=== PATIENT | male | born 1965 | race Caucasian/White ===

== ENCOUNTER 2019-01-09 12:12 | Emergency (ER) | payer BC ==
[2019-01-09] MEDS ORDERED: Nitroglycerin 0.4 MG Tab.SL SL ONE (12:22)
--- NOTE | 2019-01-09 12:29 | EDM.PDOC ---
ED HPI GENERAL MEDICAL PROBLEM - General Chief Complaint: Chest Pain Stated Complaint: chest pain Time Seen by Provider: 01/09/19 12:15 Source of Information: Reports: Patient, Family History Limitations: Reports: No Limitations - History of Present Illness INITIAL COMMENTS - FREE TEXT/NARRATIVE: Patient presents to ER with a 45 minute history of intermittent chest and back pain. States was out working in his [employer] shop when noted increased pain in his back up to his neck. He relates he felt a fullness then between his back and his chest. Did rate his pain at a 7 at that time. Roscoe short of breath and got sweaty. Roscoe lightheaded. relates "it was like he suddenly got very weak". Patient states thought was going to faint. The pain then did ease enroute to our facility but waxed and waned thereafter. Now has very minimal pain, rates at a 1. He denies any cardiac history. No trauma. Had a follow up visit 2 weeks ago for his knee, blood pressure was good at that time. No history of known hypertension, hyperlipidemia or cardiac arrhythmias. Family history consists of a grandfather who of a "heart attack in his 70s" Onset: Today, Sudden Duration: Minutes: Location: Reports: Chest, Back Quality: Reports: Pressure Severity: Moderate Improves with: Reports: Rest Associated Symptoms: Reports: Chest Pain, Diaphoresis, Shortness of Breath. Denies: Confusion, Cough, Fever/Chills, Loss of Appetite, Nausea/Vomiting Chest Pain Score (Numeric/FACES): 0 - Related Data Allergies Allergy/AdvReac Type Severity Reaction Status Date / Time No Known Allergies Allergy Verified 01/09/19 12:31 Home Meds: Home Meds . [No Known Home Meds] 01/09/19 [History] Past Medical History Musculoskeletal History: Reports: Arthritis - Past Surgical History Musculoskeletal Surgical History: Reports: Joint Replacement Social & Family History - Tobacco Use Smoking Status *Q: Never Smoker ED ROS GENERAL - Review of Systems Review Of Systems: See Below Constitutional: Reports: Malaise, Weakness. Denies: Fever, Chills, Decreased Appetite HEENT: Reports: No Symptoms Respiratory: Reports: Shortness of Breath. Denies: Wheezing, Cough Cardiovascular: Reports: Chest Pain, Lightheadedness. Denies: Edema Endocrine: Reports: Fatigue GI/Abdominal: Reports: Nausea. Denies: Abdominal Pain, Constipation, Diarrhea, Vomiting : Reports: No Symptoms Musculoskeletal: Reports: Back Pain Skin: Reports: Diaphoresis Neurological: Reports: Weakness Psychiatric: Reports: No Symptoms ED EXAM, GENERAL - Physical Exam Exam: See Below Exam Limited By: No Limitations General Appearance: Alert, WD/WN, Mild Distress Ears: Normal External Exam, Normal TMs Nose: Normal Inspection, Normal Mucosa, No Blood Throat/Mouth: Normal Inspection, Normal Oropharynx Head: Normocephalic Neck: Normal Inspection, Supple, Non-Tender Respiratory/Chest: No Respiratory Distress, Lungs Clear, Normal Breath Sounds Cardiovascular: Regular Rate, Rhythm, No Edema GI/Abdominal: Normal Bowel Sounds, Soft, Non-Tender Extremities: Normal Inspection, No Pedal Edema Neurological: Alert, Oriented Skin Exam: Warm, Dry EKG INTERPRETATION EKG Date: 01/09/19 Rhythm: NSR Course - Vital Signs Last Recorded V/S: Last Vital Signs Temp 97 F 01/09/19 15:12 Pulse 77 01/09/19 15:12 Resp 18 01/09/19 15:12 BP 116/68 01/09/19 15:12 Pulse Ox 97 01/09/19 15:12 - Orders/Labs/Meds Orders: Active Orders 24 hr Category Date Time Status Ang Chest [CT] Stat Exams 01/09/19 12:47 Taken Chest 2V [CR] Stat Exams 01/09/19 12:14 Taken Labs: Laboratory Tests 01/09/19 01/09/19 01/09/19 Range/Units 12:14 12:14 12:14 WBC 6.5 (5.0-10.0) 10^3/uL RBC 5.34 (4.50-6.00) 10^6/uL Hgb 16.9 (14.0-18.0) g/dL Hct 49.1 (40.0-54.0) % MCV 91.9 (82.0-94.0) fL MCH 31.6 (27.0-32.0) pg MCHC 34.4 (33.0-38.0) g/dL RDW Coeff of Efra 12.9 (11.0-15.0) % Plt Count 198 (150-400) 10^3/uL Neut % (Auto) 46.5 (35-85) % Lymph % (Auto) 36.1 (10-55) % [place] % (Auto) 13.1 (0-16) % Eos % (Auto) 4.0 (0-5) % Baso % (Auto) 0.3 (0-3) % Neut # (Auto) 3.02 (1.80-7.00) 10^3/uL Lymph # (Auto) 2.34 (1.00-4.80) 10^3/uL [place] # (Auto) 0.85 H (0.00-0.80) 10^3/uL Eos # (Auto) 0.26 (0.00-0.45) 10^3/uL Baso # (Auto) 0.02 10^3/uL D-Dimer, Quantitative 0.51 H (0.00-0.50) Sodium 137 (136-145) mEq/L Potassium 3.9 (3.5-5.0) mEq/L Chloride 102 (98-106) mEq/L Carbon Dioxide 26 (21-32) mmol/L BUN 21 H (7-18) mg/dL Creatinine 1.0 (0.7-1.3) mg/dL Est Cr Clr Drug Dosing 94.84 mL/min Estimated GFR (MDRD) > 60 (>=60) mL/min Glucose 106 H D (75-99) mg/dL Calcium 8.9 (8.4-10.1) mg/dL Total Bilirubin 0.6 (0.0-1.0) mg/dL AST 25 (15-37) U/L ALT 37 (12-78) U/L Alkaline Phosphatase 73 (46-116) U/L Lactate Dehydrogenase 186 (100-190) U/L Creatine Kinase 232 (35-232) U/L Troponin I < 0.017 (0.00-0.06) ng/mL Total Protein 6.9 (6.4-8.2) g/dL Albumin 3.7 (3.4-5.0) g/dL Amylase 45 (25-115) U/L Lipase 115 (73-393) U/L 01/09/19 Range/Units 16:10 WBC (5.0-10.0) 10^3/uL RBC (4.50-6.00) 10^6/uL Hgb (14.0-18.0) g/dL Hct (40.0-54.0) % MCV (82.0-94.0) fL MCH (27.0-32.0) pg MCHC (33.0-38.0) g/dL RDW Coeff of Efra (11.0-15.0) % Plt Count (150-400) 10^3/uL Neut % (Auto) (35-85) % Lymph % (Auto) (10-55) % [place] % (Auto) (0-16) % Eos % (Auto) (0-5) % Baso % (Auto) (0-3) % Neut # (Auto) (1.80-7.00) 10^3/uL Lymph # (Auto) (1.00-4.80) 10^3/uL [place] # (Auto) (0.00-0.80) 10^3/uL Eos # (Auto) (0.00-0.45) 10^3/uL Baso # (Auto) 10^3/uL D-Dimer, Quantitative (0.00-0.50) Sodium (136-145) mEq/L Potassium (3.5-5.0) mEq/L Chloride (98-106) mEq/L Carbon Dioxide (21-32) mmol/L BUN (7-18) mg/dL Creatinine (0.7-1.3) mg/dL Est Cr Clr Drug Dosing mL/min Estimated GFR (MDRD) (>=60) mL/min Glucose (75-99) mg/dL Calcium (8.4-10.1) mg/dL Total Bilirubin (0.0-1.0) mg/dL AST (15-37) U/L ALT (12-78) U/L Alkaline Phosphatase (46-116) U/L Lactate Dehydrogenase (100-190) U/L Creatine Kinase (35-232) U/L Troponin I < 0.017 (0.00-0.06) ng/mL Total Protein (6.4-8.2) g/dL Albumin (3.4-5.0) g/dL Amylase (25-115) U/L Lipase (73-393) U/L Meds: Medications Discontinued Medications Generic Name Dose Route Start Last Admin Trade Name Freq PRN Reason Stop Dose Admin Iopamidol 100 ml 01/09/19 12:56 06/12/19 13:06 Isovue-370 (76%) IVPUSH 01/09/19 12:57 100 ml ONETIME ONE Administration Nitroglycerin 0.4 mg 01/09/19 12:22 01/09/19 12:25 Nitrostat SL 01/09/19 12:23 0.4 mg ONETIME ONE Administration - Re-Assessments/Exams Free Text/Narrative Re-Assessment/Exam: 01/09/19 D-Dimer mildly elevated. Cardiac enzymes normal. Will proceed with CTA of chest. Blood pressure improved after nitro. 1700- Repeat cardiac enzymes normal. CTA negative. Will discharge home. Arrange tomorrow for cardiolyte, possibly carotid ultrasound. Discuss with Dr. West. Rest. Push fluids. Departure - Departure Time of Disposition: 17:04 Disposition: Home, Self-Care 01 Condition: Good Clinical Impression: Atypical chest pain Referrals: PCP,None [Primary Care Provider] - Forms: ED Department Discharge Additional Instructions: 1. Rest 2. Push fluids 3. Small frequent meals 4. Will contact you and proceed with stress test, possible further labs. 5. Follow up or return if recurring symptoms. - My Orders Last 24 Hours: My Active Orders 01/09/19 12:14 Chest 2V [CR] Stat 01/09/19 12:47 Ang Chest [CT] Stat - Assessment/Plan Last 24 Hours: My Active Orders 01/09/19 12:14 Chest 2V [CR] Stat 01/09/19 12:47 Ang Chest [CT] Stat
[2019-01-09 12:41] LABS: CHLORIDE,CL 102 mEq/L (98-106); SODIUM,NA 137 mEq/L (136-145)
[2019-01-09] MEDS ORDERED: Iopamidol 755 Mg/ML 100 ML Bottle IVPUSH ONE (12:56)
== END 2019-01-09 17:11 | disposition home or self-care (01) ==
LOC: CC.ED 12:12
DX: R07.89 Other chest pain (principal); R79.1 Abnormal coagulation profile
CPT/HCPCS: 36415; 71046; 71275; 80053; 82150; 82550; 83615; 83690; 84484; 85025; 85379; 93005; 99285-25; A9270-GY; Q9967

== ENCOUNTER 2019-01-13 13:26 | Emergency (ER) | payer BC ==
[~2019-01-13 13:26] MED LIST: Nitroglycerin 0.4 MG Tab.SL SL PRN
--- NOTE | 2019-01-13 13:36 | EDM.PDOC ---
ED HPI GENERAL MEDICAL PROBLEM - General Chief Complaint: General Stated Complaint: weakness, dizziness Time Seen by Provider: 01/13/19 13:26 - History of Present Illness INITIAL COMMENTS - FREE TEXT/NARRATIVE: in with c/o developed cp and sob x 1 hour ago, was seen in the ED earlier this week with similar sx and was dc home, is set up for a Echocardiogram, carotid US and a stress test for this coming week. was also started on metoprolol. pt has already taken asa just prior to coming to the ED. nausea, no vomiting, no abd pain, no fever or chills, no palpitations or irregular heart beat, no calf pain, redness or swelling. Onset: Today, Sudden Duration: Hour(s): Location: Reports: Chest Quality: Reports: Same as Previous Episode Severity: Moderate Improves with: Reports: None Worsens with: Reports: None Associated Symptoms: Reports: Chest Pain, Nausea/Vomiting, Shortness of Breath. Denies: Confusion, Cough, cough w sputum, Fever/Chills, Headaches, Loss of Appetite, Malaise, Syncope, Weakness Treatments [employer]: Reports: Aspirin Chest Pain Score (Numeric/FACES): 1 - Related Data Allergies Allergy/AdvReac Type Severity Reaction Status Date / Time No Known Allergies Allergy Verified 01/13/19 13:28 Home Meds: Home Meds Metoprolol Tartrate 25 mg PO BID 01/13/19 [History] Past Medical History Cardiovascular History: Reports: Hypertension Musculoskeletal History: Reports: Arthritis - Past Surgical History Musculoskeletal Surgical History: Reports: Joint Replacement Social & Family History - Family History Family Medical History: Noncontributory Cardiac: Reports: CAD, Other (See Below) Other Cardiac Family History: maternal grandfather of [place] - Tobacco Use Smoking Status *Q: Never Smoker - Alcohol Use Alcohol Use History: No ED ROS GENERAL - Review of Systems Review Of Systems: See Below Constitutional: Denies: Fever, Chills, Weakness HEENT: Reports: No Symptoms Respiratory: Reports: Shortness of Breath Cardiovascular: Reports: Chest Pain Endocrine: Reports: No Symptoms GI/Abdominal: Reports: Nausea. Denies: Abdominal Pain, Vomiting Musculoskeletal: Reports: No Symptoms Skin: Reports: No Symptoms Neurological: Reports: No Symptoms Psychiatric: Reports: Anxiety Hematologic/Lymphatic: Reports: No Symptoms ED EXAM, GENERAL - Physical Exam Exam: See Below Exam Limited By: No Limitations General Appearance: Alert, WD/WN, Anxious Ears: Normal External Exam Nose: Normal Inspection Throat/Mouth: Normal Voice, No Airway Compromise Head: Atraumatic, Normocephalic Neck: Normal Inspection, Supple, Non-Tender, Full Range of Motion Respiratory/Chest: No Respiratory Distress, Lungs Clear, Normal Breath Sounds, No Accessory Muscle Use, Chest Non-Tender Cardiovascular: Normal Peripheral Pulses, Regular Rate, Rhythm, No Edema, No Murmur Peripheral Pulses: 2+: Radial (L), Radial (R), Dorsalis Pedis (L), Dorsalis Pedis (R) GI/Abdominal: Normal Bowel Sounds, Soft, Non-Tender Back Exam: Normal Inspection, Full Range of Motion Extremities: Normal Inspection, Normal Range of Motion, Non-Tender, No Pedal Edema, Normal Capillary Refill. No: Jenifer's Sign Neurological: Alert, Oriented, Normal Cognition, Normal Gait, No Motor/Sensory Deficits Psychiatric: Normal Affect, Anxious Skin Exam: Warm, Dry, Intact, Normal Color EKG INTERPRETATION EKG Date: 01/13/19 Time: 13:33 Rhythm: NSR Lyons: Normal P-Wave: Present QRS: Normal ST-T: Normal EKG Interpretation Comments: NSR, RSR in the right limb leads Course - Vital Signs Last Recorded V/S: Last Vital Signs Temp 35.8 C 01/13/19 13:26 Pulse 72 01/13/19 13:49 Resp 20 01/13/19 13:49 BP 122/72 01/13/19 13:49 Pulse Ox 95 01/13/19 13:49 - Orders/Labs/Meds Orders: Active Orders 24 hr Category Date Time Status Chest 2V [CR] Stat Exams 01/13/19 13:08 Taken Nitroglycerin [Nitrostat] Med 01/13/19 13:10 Active 0.4 mg SL Q5M PRN Medication Orders Nitroglycerin (Nitrostat) 0.4 mg SL Q5M PRN PRN Reason: Chest Pain Last Admin: 01/13/19 13:34 Dose: 0.4 mg Labs: Laboratory Tests 01/13/19 01/13/19 01/13/19 Range/Units 13:30 13:30 13:30 WBC 6.1 (5.0-10.0) 10^3/uL RBC 5.76 (4.50-6.00) 10^6/uL Hgb 18.3 H* (14.0-18.0) g/dL Hct 53.0 (40.0-54.0) % MCV 92.0 (82.0-94.0) fL MCH 31.8 (27.0-32.0) pg MCHC 34.5 (33.0-38.0) g/dL RDW Coeff of Efra 13.1 (11.0-15.0) % Plt Count 209 (150-400) 10^3/uL Neut % (Auto) 51.9 (35-85) % Lymph % (Auto) 32.7 (10-55) % [place] % (Auto) 10.4 (0-16) % Eos % (Auto) 4.8 (0-5) % Baso % (Auto) 0.2 (0-3) % Neut # (Auto) 3.14 (1.80-7.00) 10^3/uL Lymph # (Auto) 1.98 (1.00-4.80) 10^3/uL [place] # (Auto) 0.63 (0.00-0.80) 10^3/uL Eos # (Auto) 0.29 (0.00-0.45) 10^3/uL Baso # (Auto) 0.01 10^3/uL PT 10.0 (9.7-12.3) SEC INR 0.97 (0.92-1.18) APTT 30.2 (23.2-32.3) SEC Sodium 140 (136-145) mEq/L Potassium 3.9 (3.5-5.0) mEq/L Chloride 102 (98-106) mEq/L Carbon Dioxide 31 (21-32) mmol/L BUN 23 H (7-18) mg/dL Creatinine 1.2 (0.7-1.3) mg/dL Est Cr Clr Drug Dosing 79.04 mL/min Estimated GFR (MDRD) > 60 (>=60) mL/min Glucose 132 H (75-99) mg/dL Calcium 9.3 (8.4-10.1) mg/dL Total Bilirubin 0.4 (0.0-1.0) mg/dL AST 21 (15-37) U/L ALT 32 (12-78) U/L Alkaline Phosphatase 80 (46-116) U/L Lactate Dehydrogenase 181 (100-190) U/L Creatine Kinase 86 (35-232) U/L Troponin I < 0.017 (0.00-0.06) ng/mL Total Protein 7.3 (6.4-8.2) g/dL Albumin 3.8 (3.4-5.0) g/dL Lipase (73-393) U/L 01/13/19 Range/Units 13:30 WBC (5.0-10.0) 10^3/uL RBC (4.50-6.00) 10^6/uL Hgb (14.0-18.0) g/dL Hct (40.0-54.0) % MCV (82.0-94.0) fL MCH (27.0-32.0) pg MCHC (33.0-38.0) g/dL RDW Coeff of Efra (11.0-15.0) % Plt Count (150-400) 10^3/uL Neut % (Auto) (35-85) % Lymph % (Auto) (10-55) % [place] % (Auto) (0-16) % Eos % (Auto) (0-5) % Baso % (Auto) (0-3) % Neut # (Auto) (1.80-7.00) 10^3/uL Lymph # (Auto) (1.00-4.80) 10^3/uL [place] # (Auto) (0.00-0.80) 10^3/uL Eos # (Auto) (0.00-0.45) 10^3/uL Baso # (Auto) 10^3/uL PT (9.7-12.3) SEC INR (0.92-1.18) APTT (23.2-32.3) SEC Sodium (136-145) mEq/L Potassium (3.5-5.0) mEq/L Chloride (98-106) mEq/L Carbon Dioxide (21-32) mmol/L BUN (7-18) mg/dL Creatinine (0.7-1.3) mg/dL Est Cr Clr Drug Dosing mL/min Estimated GFR (MDRD) (>=60) mL/min Glucose (75-99) mg/dL Calcium (8.4-10.1) mg/dL Total Bilirubin (0.0-1.0) mg/dL AST (15-37) U/L ALT (12-78) U/L Alkaline Phosphatase (46-116) U/L Lactate Dehydrogenase (100-190) U/L Creatine Kinase (35-232) U/L Troponin I (0.00-0.06) ng/mL Total Protein (6.4-8.2) g/dL Albumin (3.4-5.0) g/dL Lipase 1212 H (73-393) U/L Meds: Medications Generic Name Dose Route Start Last Admin Trade Name Freq PRN Reason Stop Dose Admin Nitroglycerin 0.4 mg 01/13/19 13:10 01/13/19 13:34 Nitrostat SL 0.4 mg Q5M PRN Administration Chest Pain - Radiology Interpretation Free Text/Narrative:: cxr is neg, pending radiology over read Departure - Departure Time of Disposition: 14:31 Disposition: DC/Tfer to [facility] 02 Condition: Good Clinical Impression: Chest pain, Pancreatitis - Discharge Information *PRESCRIPTION DRUG MONITORING PROGRAM REVIEWED*: Not Applicable *COPY OF PRESCRIPTION DRUG MONITORING REPORT IN PATIENT BENJAMIN: Not Applicable Referrals: PCP,None [Primary Care Provider] - Forms: ED Department Discharge ED Communication - Conversation Summary Summary Comment: [address] [facility], spoke with Jovon and they are on diversion. 1415 called [facility] and spoke with Madeline in the transfer center, will check bed status and let me know. [address] Grossman, will accept the pt to the floor, madeline will call back for bed assignment, see nursing notes for details of the transfer. - Problem List & Annotations (1) Chest pain SNOMED Code(s): 43190467 Code(s): R07.9 - CHEST PAIN, UNSPECIFIED Status: Acute Priority: High Current Visit: Yes (2) Pancreatitis SNOMED Code(s): 55976396 Code(s): K85.90 - ACUTE PANCREATITIS WITHOUT NECROSIS OR INFECTION, UNSP Status: Acute Priority: High Current Visit: Yes Qualifiers: Chronicity: acute - Problem List Review Problem List Initiated/Reviewed/Updated: Yes - My Orders Last 24 Hours: My Active Orders 01/13/19 13:08 Chest 2V [CR] Stat 01/13/19 13:10 Nitroglycerin [Nitrostat] 0.4 mg SL Q5M PRN - Assessment/Plan Last 24 Hours: My Active Orders 01/13/19 13:08 Chest 2V [CR] Stat 01/13/19 13:10 Nitroglycerin [Nitrostat] 0.4 mg SL Q5M PRN Plan: will transfer to [facility] for eval and tx by cardiology and gastroenterology not available at [facility]
[2019-01-13 13:58] LABS: CHLORIDE,CL 102 mEq/L (98-106); SODIUM,NA 140 mEq/L (136-145)
== END 2019-01-13 15:30 ==
LOC: CC.ED 13:26
DX: K85.90 Acute pancreatitis without necrosis or infection, unspecified (principal); I10 Essential (primary) hypertension; R07.9 Chest pain, unspecified; Z79.899 Other long term (current) drug therapy
CPT/HCPCS: 36415; 71046; 80053; 82550; 83615; 83690; 84484; 85025; 85610; 85730; 93005; 99285-25; A9270-GY

== ENCOUNTER 2020-09-24 17:49 | Emergency (ER) | payer BC ==
[2020-09-24 18:15] LABS: CHLORIDE,CL 102 mEq/L (98-106); SODIUM,NA 140 mEq/L (136-145)
--- NOTE | 2020-09-24 19:16 | EDM.PDOC ---
ED HPI GENERAL MEDICAL PROBLEM - General Chief Complaint: General Stated Complaint: ?DVT Time Seen by Provider: 09/24/20 18:10 Source of Information: Reports: Patient History Limitations: Reports: No Limitations - History of Present Illness INITIAL COMMENTS - FREE TEXT/NARRATIVE: Celso is a 55 year old male who presents to ER with concerns of a possible blood clot in his left leg. Noted a lump in his left inner calf yesterday and has gotten more dense and the surrounding area is mildly swollen. Does have redness surrounding this area with mild warmth. Is tender. Has significant varicosities. States got his first covid vaccine a few weeks ago and read that it could cause blood clots so is more worried. Denies fever. No shortness of breath. No recent injury or cut to leg that he is aware of. Onset: Gradual Duration: Day(s):, Getting Worse Location: Reports: Lower Extremity, Left Quality: Reports: Ache Severity: Mild Associated Symptoms: Denies: Confusion, Chest Pain, Cough, Fever/Chills, Nausea/Vomiting, Shortness of Breath - Related Data Allergies Allergy/AdvReac Type Severity Reaction Status Date / Time No Known Allergies Allergy Verified 09/24/20 17:52 Past Medical History HEENT History: Reports: Impaired Vision Cardiovascular History: Reports: Hypertension Musculoskeletal History: Reports: Arthritis Dermatologic History: Reports: Other (See Below) Other Dermatologic History: pt gets red, itchy patches in winter time that disappear in spring; has had for many years - Past Surgical History GI Surgical History: Reports: Colonoscopy Musculoskeletal Surgical History: Reports: Arthroscopic Knee, Knee Replacement Social & Family History - Family History Family Medical History: No Pertinent Family History Cardiac: Reports: CAD, Other (See Below) Other Cardiac Family History: maternal grandfather of [place] - Tobacco Use Tobacco Use Status *Q: Never Tobacco User - Caffeine Use Caffeine Use: Reports: Coffee, Soda - Recreational Drug Use Recreational Drug Use: No ED ROS GENERAL - Review of Systems Review Of Systems: See Below Constitutional: Denies: Fever, Chills, Malaise, Weakness HEENT: Reports: No Symptoms Respiratory: Denies: Shortness of Breath, Cough Cardiovascular: Denies: Chest Pain, Edema, Lightheadedness Endocrine: Denies: Fatigue GI/Abdominal: Denies: Abdominal Pain, Nausea, Vomiting : Reports: No Symptoms Musculoskeletal: Reports: Leg Pain Skin: Reports: Other (lump to left leg with surrounding erythema) ED EXAM, GENERAL - Physical Exam Exam: See Below Exam Limited By: No Limitations General Appearance: Alert, WD/WN, No Apparent Distress Ears: Normal External Exam, Normal TMs Nose: Normal Inspection, Normal Mucosa, No Blood Throat/Mouth: Normal Inspection, Normal Oropharynx Head: Normocephalic Neck: Normal Inspection, Supple, Non-Tender Respiratory/Chest: No Respiratory Distress, Lungs Clear, Normal Breath Sounds Cardiovascular: Regular Rate, Rhythm GI/Abdominal: Normal Bowel Sounds, Soft, Non-Tender Extremities: Normal Inspection, No Pedal Edema Neurological: Alert, Oriented Skin Exam: Warm, Other (does have area of redness to left inner calf. Ropy veins noted/significant varicosities noted. ) Course - Vital Signs Last Recorded V/S: Last Vital Signs Temp 97.3 F 09/24/20 17:49 Pulse 76 09/24/20 17:49 Resp 16 09/24/20 17:49 BP 162/90 H 09/24/20 17:49 Pulse Ox 95 09/24/20 17:49 - Orders/Labs/Meds Orders: Active Orders 24 hr Category Date Time Status VL Duplex Lwr Ext Veins Ltd Lt [US] Routine Exams 09/24/20 Ordered Labs: Laboratory Tests 09/24/20 09/24/20 09/24/20 Range/Units 18:05 18:05 18:05 WBC 6.9 (5.0-10.0) 10^3/uL RBC 5.34 (4.50-6.00) 10^6/uL Hgb 17.0 (14.0-18.0) g/dL Hct 49.3 (40.0-54.0) % MCV 92.3 (82.0-94.0) fL MCH 31.8 (27.0-32.0) pg MCHC 34.5 (33.0-38.0) g/dL RDW Coeff of Efra 12.7 (11.0-15.0) % Plt Count 209 (150-400) 10^3/uL Neut % (Auto) 56.2 (35-85) % Lymph % (Auto) 29.7 (10-55) % [place] % (Auto) 9.3 (0-16) % Eos % (Auto) 4.4 (0-5) % Baso % (Auto) 0.4 (0-3) % Neut # (Auto) 3.86 (1.80-7.00) 10^3/uL Lymph # (Auto) 2.04 (1.00-4.80) 10^3/uL Love # (Auto) 0.64 (0.00-0.80) 10^3/uL Eos # (Auto) 0.30 (0.00-0.45) 10^3/uL Baso # (Auto) 0.03 10^3/uL D-Dimer, Quantitative 0.65 H (0.00-0.50) Sodium 140 (136-145) mEq/L Potassium 4.2 (3.5-5.0) mEq/L Chloride 102 (98-106) mEq/L Carbon Dioxide 28 (21-32) mmol/L BUN 22 H (7-18) mg/dL Creatinine 1.1 (0.7-1.3) mg/dL Est Cr Clr Drug Dosing 2.96 mL/min Estimated GFR (MDRD) > 60 (>=60) mL/min Glucose 110 H (75-99) mg/dL Calcium 8.7 (8.4-10.1) mg/dL C-Reactive Protein < 0.2 L (0.2-0.8) mg/dL - Re-Assessments/Exams Free Text/Narrative Re-Assessment/Exam: 09/24/20 Labs stable, d-dimer mildly elevated. Ultrasound obtained. No evidence of DVT. Patient informed. Information given. Departure - Departure Time of Disposition: 19:14 Disposition: DC/Tfer to Acute Hospital 02 Condition: Good Clinical Impression: Thrombophlebitis leg - Discharge Information *PRESCRIPTION DRUG MONITORING PROGRAM REVIEWED*: No *COPY OF PRESCRIPTION DRUG MONITORING REPORT IN PATIENT BENJAMIN: No Instructions: Thrombophlebitis Referrals: Alejandro West MD [Primary Care Provider] - Forms: ED Department Discharge Additional Instructions: 1. Rest 2. Warm packs periodically through day to leg 3. Ronald hose 4. Enteric coated 325 mg of aspirin daily 5. Follow up if any persisting concerns. Sepsis Event Note (ED) - Evaluation Sepsis Screening Result: No Definite Risk - Focused Exam Vital Signs: Vital Signs Temp Pulse Resp BP Pulse Ox 09/24/20 17:49 97.3 F 76 16 162/90 H 95 - My Orders Last 24 Hours: My Active Orders 09/24/20 VL Duplex Lwr Ext Veins Ltd Lt [US] Routine - Assessment/Plan Last 24 Hours: My Active Orders 09/24/20 VL Duplex Lwr Ext Veins Ltd Lt [US] Routine
== END 2020-09-24 19:27 | disposition home or self-care (01) ==
LOC: CC.ED 17:49
DX: I80.3 Phlebitis and thrombophlebitis of lower extremities, unspecified (principal); I10 Essential (primary) hypertension
CPT/HCPCS: 36415; 80048; 85025; 85379; 86140; 93971-LT; 99284-25